=== PATIENT | female | born 1940 | race Caucasian/White ===

== ENCOUNTER 2020-09-12 12:46 | Outpatient (CLI) | payer MEDICARE, OTHER | END 2020-09-12 12:47 | disposition short-term general hospital (02) | LOC: EMS 12:46 | DX: Z04.3 Encounter for examination and observation following other accident (principal); M25.551 Pain in right hip | CPT/HCPCS: A0425; A0427 ==

== ENCOUNTER 2020-12-27 10:27 | Outpatient (CLI) | payer MEDICARE, OTHER | END 2020-12-27 10:28 | disposition EMS.NT | LOC: EMS 10:27 | DX: R06.02 Shortness of breath (principal) ==

== ENCOUNTER 2022-06-19 19:53 | Outpatient (CLI) | payer MEDICARE, OTHER | END 2022-06-19 23:59 | disposition EMS.NT | LOC: EMS 19:53 | DX: R10.9 Unspecified abdominal pain (principal); R11.2 Nausea with vomiting, unspecified ==

== ENCOUNTER 2022-10-23 18:51 | Outpatient (CLI) | payer MEDICARE, OTHER | END 2022-10-23 23:59 | disposition short-term general hospital (02) | LOC: EMS 18:51 | DX: R10.30 Lower abdominal pain, unspecified (principal); R11.2 Nausea with vomiting, unspecified; Z93.3 Colostomy status | CPT/HCPCS: A0425; A0427; A0888 ==